=== PATIENT | male | born 1950 | race Caucasian/White ===

== ENCOUNTER → 2018-09-25 11:10 | Outpatient (CLI) | payer MEDICARE, OTHER, SELFPAY ==
[2018-09-25 12:15] LABS: Cholesterol 247 mg/dL (140-199); HDL Cholesterol 72 mg/dL (40-60); LDL Cholesterol Calculated 157 mg/dL (<100); Triglycerides 89 mg/dL (35-150)
[2018-09-25 12:33] LABS: Vitamin D 25 Hydroxy (D3) 35.9 ng/mL (30.0-100.0)
== END ==
PROVIDERS: PCP Student in an Organized Health Care Education/Training Program; Visit Provider Student in an Organized Health Care Education/Training Program
DX: E55.9 Vitamin D deficiency, unspecified (principal); E78.5 Hyperlipidemia, unspecified
CPT/HCPCS: 36415; 80061; 82306; 86900; 86901

== ENCOUNTER → 2020-01-03 15:59 | Outpatient (CLI) | payer MEDICARE, OTHER, SELFPAY ==
[2020-01-03 17:49] LABS: Cholesterol 194 mg/dL (140-199); HDL Cholesterol 57 mg/dL (40-60); LDL Cholesterol Calculated 97 mg/dL (<100); Triglycerides 198 mg/dL (35-150)
[2020-01-03 18:21] LABS: Prostate Specific Antigen Scrn 0.799 ng/mL (0.1-4.0)
== END ==
PROVIDERS: PCP Student in an Organized Health Care Education/Training Program; Referring Provider Student in an Organized Health Care Education/Training Program; Visit Provider Student in an Organized Health Care Education/Training Program
DX: Z12.5 Encounter for screening for malignant neoplasm of prostate (principal); E78.5 Hyperlipidemia, unspecified
CPT/HCPCS: 36415; 80061; G0103

== ENCOUNTER → 2021-01-05 13:35 | Outpatient (CLI) | payer MEDICARE, OTHER, SELFPAY ==
[2021-01-05 14:32] LABS: Add Manual Diff / Slide Review NO; Basophils Absolute Auto 100 /uL (0-100); Basophils Percent Auto 0.9 % (0-2); Eosinophils Absolute Auto 200 /uL (0-450); Eosinophils Percent Auto 3.7 % (2-4); Hematocrit 43.6 % (41-53); Hemoglobin 14.3 g/dL (13.5-17.5); Lymphocytes Absolute Auto 2000 /uL (1100-4500); Lymphocytes Percent Auto 30.1 % (25-40); Mean Corpuscular HGB Conc 32.8 % (30-36); Mean Corpuscular Hemoglobin 30.5 PG (26-34); Mean Corpuscular Volume 92.9 fL (80-100); Monocytes Absolute Auto 700 /uL (0-900); Monocytes Percent Auto 10.4 % (3-14); Neutrophils Absolute Auto 3600 /uL (1500-7000); Neutrophils Percent Auto 54.9 % (50-75); Platelet Count 258 X10^3/uL (150-400); Red Blood Cell Count 4.69 X10^6/uL (4.5-5.9); Red Cell Distribution Width 13.2 % (11.6-14.8); White Blood Cell Count 6.6 X10^3/uL (4.5-11.0)
[2021-01-05 14:56] LABS: Alanine Aminotransferase 18 IU/L (<50); Albumin 4.1 g/dL (3.5-5.0); Albumin Globulin Ratio 1.5 (1.0-2.8); Alkaline Phosphatase 46 U/L (38-126); Aspartate Aminotransferase 26 IU/L (17-59); BUN Creatinine Ratio 21.1 (6-22); Bilirubin Total 0.8 mg/dL (0.2-1.3); Bilirubin Unconjugated 0.8 mg/dL (0.0-1.1); Blood Urea Nitrogen 16 mg/dL (9-20); Carbon Dioxide 26 mmol/L (22-32); Chloride 105 mmol/L (98-107); Cholesterol 218 mg/dL (140-199); Estimated Glomerular Filt Rate > 60.0 mL/min (>60); Globulin 2.8 g/dL (1.7-4.1); Glucose 95 mg/dL (80-110); HDL Cholesterol 71 mg/dL (40-60); HEMOLYSIS < 15 (0-50); LDL Cholesterol Calculated 133 mg/dL (<100); Potassium 4.1 mmol/L (3.4-5.1); Sodium 138 mmol/L (137-145); Total Protein 6.9 g/dL (6.3-8.2); Triglycerides 70 mg/dL (35-150)
== END ==
PROVIDERS: PCP Student in an Organized Health Care Education/Training Program; Referring Provider Physician Assistant; Visit Provider Physician Assistant
DX: L30.9 Dermatitis, unspecified (principal); L53.8 Other specified erythematous conditions; L90.5 Scar conditions and fibrosis of skin; L82.0 Inflamed seborrheic keratosis; L29.8 Other pruritus
CPT/HCPCS: 36415; 80053; 80061; 80076; 85025

== ENCOUNTER → 2021-04-09 15:52 | Outpatient (CLI) | payer MEDICARE, OTHER, SELFPAY ==
[2021-04-09 16:19] LABS: COVID19 -Nasal RAPID Negative (Negative)
== END ==
PROVIDERS: PCP Student in an Organized Health Care Education/Training Program; Visit Provider Nurse Practitioner Family
DX: Z20.822 Contact with and (suspected) exposure to COVID-19 (principal)
CPT/HCPCS: 87635

== ENCOUNTER → 2022-02-18 11:10 | Outpatient (CLI) | payer MEDICARE, OTHER, SELFPAY ==
[2022-02-18 15:40] LABS: Prostate Specific Antigen Scrn 0.776 ng/mL (0.1-4.0)
== END ==
PROVIDERS: PCP Student in an Organized Health Care Education/Training Program; Referring Provider Urology; Visit Provider Urology
DX: Z12.5 Encounter for screening for malignant neoplasm of prostate (principal)
CPT/HCPCS: 36415; G0103

== ENCOUNTER → 2023-03-04 | Outpatient (CLI) | payer MEDICARE, OTHER, SELFPAY ==
--- NOTE | 2023-03-04 16:02 | DI.RAD.S_ITS ---
PROCEDURE: XR KNEE RT 3V INDICATIONS: RIGHT KNEE PAIN TECHNIQUE: 3 views of the knee were acquired. COMPARISON: None. FINDINGS: Bones: No fractures or dislocations. No suspicious bony lesions. Mild medial compartment joint space narrowing with small marginal osteophyte Soft tissues: No joint effusion. No suspicious soft tissue calcifications. IMPRESSION: Mild medial compartment joint space narrowing Approved by: Madi Fajardo M.D. on 03/04/2023 at 16:58
--- NOTE | 2023-03-04 16:02 | DI.RAD.S_ITS ---
PROCEDURE: XR KNEE LT 3V INDICATIONS: LEFT KNEE PAIN TECHNIQUE: 3 views of the knee were acquired. COMPARISON: None. FINDINGS: Bones: No fractures or dislocations. No suspicious bony lesions. Moderate medial compartment joint space narrowing Soft tissues: No joint effusion. No suspicious soft tissue calcifications. IMPRESSION: Moderate medial compartment joint space narrowing without joint effusion Approved by: Madi Fajardo M.D. on 03/04/2023 at 16:54
== END ==
PROVIDERS: PCP Student in an Organized Health Care Education/Training Program; Referring Provider Physical Medicine & Rehabilitation; Visit Provider Physical Medicine & Rehabilitation
DX: M25.562 Pain in left knee (principal); M25.561 Pain in right knee
CPT/HCPCS: 73562

== ENCOUNTER → 2023-03-24 10:31 | Outpatient (CLI) | payer MEDICARE, OTHER, SELFPAY ==
[2023-03-24 11:51] LABS: Prostate Specific Antigen Scrn 0.755 ng/mL (0.1-4.0)
== END ==
PROVIDERS: PCP Pediatrics; Referring Provider Urology; Visit Provider Urology
DX: Z12.5 Encounter for screening for malignant neoplasm of prostate (principal)
CPT/HCPCS: 36415; G0103

== ENCOUNTER 2024-04-12 09:07 | Day surgery (SDC) | payer MEDICARE, OTHER, SELFPAY ==
[2024-04-12] MEDS: LACTATED RINGERS 1,000 ML 42 ML IV (09:16)
[2024-04-12 09:25] VITALS: BP 117/66; PULSE 61; RESP 16; TEMP 36.1; O2SAT 99
--- NOTE | 2024-04-12 09:52 | P.HP_ITS ---
History of Present Illness History of Present Illness Date Patient Seen: 04/12/24 Time Patient Seen: 09:52 Chief complaint: Dx Colonoscopy w/poss bx Narrative: Hiro is a 74-year-old man who is here for a colonoscopy. His last colonoscopy was in 2018 and he knows he had at least one polyp removed and they told him to get another colonoscopy in 5 years. No family history of colon cancer. [facility] Medical History (Updated 04/12/24 @ 09:53 by Bob Ac MD) Lower urinary tract symptoms Sperm granuloma Peyronie's disease Encounter for subsequent annual wellness visit (AWV) in Medicare patient Hyperlipidemia (08/11/12) Degenerative joint disease of knee Right inguinal hernia Bilateral primary osteoarthritis of knee Dysplastic nevi Shoulder pain Food allergy Surgical History No pertinent past surgical history Family History Brother Alcoholism Father Cardiac disorder Valvular disease Mother Atherosclerosis Stroke Social History Smoking Status: Never smoker alcohol intake: current substance use type: does not use Meds Home Medications and Allergies Home Medications Medication Instructions Recorded Confirmed Type acetaminophen 500 mg oral powder 500 mg PO Q6H PRN Pain (Scale 09/29/23 04/12/24 History packet (Tylenol Extra Strength) Score 4-6) cranberry 400 mg capsule 400 mg PO DAILY 09/29/23 09/29/23 History sodium,potassium,mag sulfates 17.5 See Rx Instructions PO .COMPLEX 10/21/23 Rx gram-3.13 gram-1.6 gram oral soln #354 mL (Suprep Bowel Prep Kit) Allergies Allergy/AdvReac Type Severity Reaction Status Date / Time No Known Drug Allergies Allergy Verified 04/12/24 09:23 Exam Vital Signs (past 8 hours): - 04/12/24 09:25 Temperature 97 F L Pulse Rate 61 Respiratory Rate 16 Blood Pressure 117/66 Pulse Oximetry 99 Oxygen Delivery Method Room Air Oxygen Delivery Method Room Air Const General: healthy appearing Resp Effort & Inspection: normal respiratory effort Assessment & Plan Assessment and plan (1) History of colon polyps: Status: Acute Plan We discussed the risks and benefits of colonoscopy for a history of polyps and he would like to proceed. Time-Based Coding :: [TOTAL MINUTES] spent with patient and on the chart (including review of chart, obtaining history, exam, reviewing outside data, placing orders, documenting exam and treatment plan, and counseling patient) on [DATE].
--- NOTE | 2024-04-12 10:21 | PM.OP.COLON ---
Operative Date/Time/Diagnoses Date of procedure: 04/12/24 Time of procedure: 10:21 Pre-op diagnosis: History of polyps Post-op diagnosis: same Procedure & Clinicians Study performed: Colonoscopy Same procedure as scheduled: Yes Surgeon: Bob Ac Procedure Notes Procedure in detail: Surgeon: Bob Ac MD Anesthesia: Ani Sheikh DO Procedure: The patient was brought to the endoscopy suite, placed in left lateral decubitus position. The patient was connected to monitoring devices. A time-out was performed. Sedation was administered. Once the patient was adequately sedated, a digital rectal exam was performed and was normal. The scope was then inserted and advanced to the cecum where the appendiceal orifice was identified and photographed. The scope was then slowly withdrawn over greater than 6 minutes. The mucosa was thoroughly inspected. No abnormalities were identified. The scope was retroflexed in the rectum. The scope was straightened and removed. The patient was awakened and brought to recovery. Scope withdrawal time: 7 minutes Sedation time: 12 minutes EBL: 0 Findings: Normal colon Post-procedure Disposition: PACU
[2024-04-12 10:22] VITALS: BP 96/59; PULSE 65; RESP 11; TEMP 36.3; O2SAT 97
[2024-04-12 10:29] VITALS: BP 99/66; PULSE 60; RESP 18; TEMP 36.6; O2SAT 97
[2024-04-12 10:32] VITALS: BP 100/67; PULSE 58; RESP 17; O2SAT 97
== END 2024-04-12 10:45 | disposition home or self-care (01) ==
PROVIDERS: Surgery; PCP Family Medicine; Referring Provider Surgery; Visit Provider Surgery
PROC: 0DJD8ZZ Inspection of Lower Intestinal Tract, Via Natural or Artificial Opening Endoscopic (ICD-10-PCS; CPT 45378; principal; 2024-04-12 10:00)
DX: Z12.11 Encounter for screening for malignant neoplasm of colon (principal); Z86.0100 Personal history of colon polyps, unspecified; Z00.00 Encounter for general adult medical examination without abnormal findings
CPT/HCPCS: G0105; 36415; 80053; 80061; 86803; J2704

== ENCOUNTER → 2024-04-12 10:45 | Outpatient (CLI) | payer MEDICARE, OTHER, SELFPAY ==
[2024-04-12 11:58] LABS: Alanine Aminotransferase 18 IU/L (<50); Albumin 4.1 g/dL (3.5-5.0); Albumin Globulin Ratio 1.5 (1.0-2.8); Alkaline Phosphatase 50 U/L (38-126); Aspartate Aminotransferase 28 IU/L (17-59); BUN Creatinine Ratio 21.9 (6-22); Bilirubin Total 0.9 mg/dL (0.2-1.3); Blood Urea Nitrogen 16 mg/dL (9-20); Calcium 8.9 mg/dL (8.4-10.2); Carbon Dioxide 29 mmol/L (22-32); Chloride 103 mmol/L (98-107); Cholesterol 203 mg/dL (140-199); Estimated Glomerular Filt Rate > 60 mL/min (>60); Globulin 2.8 g/dL (1.7-4.1); Glucose 94 mg/dL (80-110); HDL Cholesterol 73 mg/dL (40-60); HEMOLYSIS < 15 (0-50); LDL Cholesterol Calculated 116 mg/dL (<100); Potassium 4.4 mmol/L (3.4-5.1); Sodium 136 mmol/L (137-145); Total Protein 6.9 g/dL (6.3-8.2); Triglycerides 69 mg/dL (35-150)
[2024-04-12 16:35] LABS: Hep C Virus Ab w/Reflex Quant NEGATIVE s/c (NEGATIVE)
== END ==
PROVIDERS: PCP Family Medicine; Referring Provider Family Medicine; Visit Provider Family Medicine
DX: Z00.00 Encounter for general adult medical examination without abnormal findings (principal)
CPT/HCPCS: 36415; 80053; 80061; 86803